=== PATIENT | female | born 1985 | race Two or more races ===

== ENCOUNTER → 2024-09-09 | Outpatient (CLI) | payer MEDICAID ==
[2024-09-09 09:50] LABS: Basophils # (auto) 0.1 10 ^3/uL (0-0.2); Basophils % (auto) 0.9 % (0.0-2.0); Eosinophils # (auto) 0.1 10 ^3/uL (0-0.8); Eosinophils % (auto) 1.5 % (0.0-7.0); Hematocrit 50.2 % (36.0-46.0); Hemoglobin 16.4 g/dL (12.2-16.2); Lymphocytes % (auto) 37.4 % (10.0-50.0); Mean Corpuscular Hemoglobin 27.6 pg (28.0-32.0); Mean Corpuscular Hgb Conc. 32.6 g/dL (32.0-36.0); Mean Corpuscular Volume 84.6 fL (80.0-100.0); Monocytes # (auto) 0.3 10 ^3/uL (0-1.3); Monocytes % (auto) 4.3 % (0.0-12.0); Neutrophils # (auto) 4.5 10 ^3/uL (1.6-8.6); Neutrophils % (auto) 55.9 % (37.0-80.0); Nucleated Red Blood Cells % 0.2 %; Platelet Count (auto) 176 10^3/uL (140-450); Red Blood Cells 5.93 10^6/uL (4.0-5.20); Red Cell Distribution Width 14.9 % (11.8-14.3); White Blood Cell 8.1 10^3/uL (4.4-10.8)
[2024-09-09 09:56] LABS: Urine Bacteria FEW /hpf (None Seen); Urine Blood 2+ /uL (Negative); Urine Budding Yeast OCCASIONAL /hpf (None Seen); Urine Clarity Turbid (Clear); Urine Color Light-Orange (Yellow); Urine Protein, UAD Negative (Negative); Urine Specific Gravity 1.032 (1.001-1.035); Urine Squamous Epithelial Cell MOD /hpf (<5); Urine Urobilinogen Normal (Negative); Urine WBC 18 /HPF (0-5); Urine pH 5.5 (5.0-9.0)
[2024-09-09 10:03] LABS: Creatinine, Urine 106.03 mg/dL (30.0-125.0)
[2024-09-09 10:07] LABS: Alanine Aminotransferase 21 U/L (7-40); Alkaline Phosphatase 111 U/L (46-116); Anion Gap 9 (5-15); BUN/Creatinine Ratio 11.4 (10.0-20.0); Carbon Dioxide 26 mmol/L (20-31); Chloride 104 mmol/L (98-107); Cholesterol 193 mg/dL (< 200); Glucose 93 mg/dL (74-106); HDL Cholesterol 49 mg/dL (40-59); Potassium 3.8 mmol/L (3.5-5.1); Sodium 139 mmol/L (136-145)
[2024-09-09 10:08] LABS: Bilirubin, Total 0.5 mg/dL (0.2-1.0)
[2024-09-09 10:11] LABS: Aspartate Aminotransferase 11 U/L (13-40); Blood Urea Nitrogen 8 mg/dL (9-23); LDL Cholesterol 120 mg/dL (< 100); Triglycerides 193 mg/dL (< 150)
== END | disposition home or self-care (01) ==
LOC: LAB 09:07
PROVIDERS: ATTEND Internal Medicine
DX: E11.9 Type 2 diabetes mellitus without complications (principal); E55.9 Vitamin D deficiency, unspecified; E78.5 Hyperlipidemia, unspecified
CPT/HCPCS: 36415; 80053; 80061; 81001; 82043; 82306; 82570; 82607; 83036; 84443; 85025

== ENCOUNTER 2024-11-30 10:13 | Outpatient (CLI) | payer MEDICAID ==
[2024-11-30 11:29] LABS: Alanine Aminotransferase 11 U/L (7-40); Alkaline Phosphatase 96 U/L (46-116); Anion Gap 8 (5-15); BUN/Creatinine Ratio 11.1 (10.0-20.0); Calcium 9.4 mg/dL (8.7-10.4); Carbon Dioxide 28 mmol/L (20-31); Chloride 105 mmol/L (98-107); Potassium 4.3 mmol/L (3.5-5.1); Sodium 141 mmol/L (136-145)
[2024-11-30 11:30] LABS: Total Protein 7.1 g/dL (5.7-8.2)
[2024-11-30 11:31] LABS: Albumin 4.8 g/dL (3.2-4.8); Bilirubin, Total 0.4 mg/dL (0.2-1.0); Blood Urea Nitrogen 8 mg/dL (9-23); Cholesterol 114 mg/dL (< 200); Creatine Kinase IFCC 63 U/L (34-145); Glucose 107 mg/dL (74-106); HDL Cholesterol 37 mg/dL (40-59); Triglycerides 183 mg/dL (< 150)
== END 2024-11-30 17:00 | disposition home or self-care (01) ==
LOC: LAB 10:13
PROVIDERS: ATTEND Internal Medicine
DX: E78.5 Hyperlipidemia, unspecified (principal); E11.9 Type 2 diabetes mellitus without complications
CPT/HCPCS: 36415; 80053; 80061; 82306; 82550; 83036

== ENCOUNTER 2025-02-28 09:34 | Outpatient (CLI) | payer MEDICAID ==
[2025-02-28 10:37] LABS: Triglycerides 114 mg/dL (< 150)
[2025-02-28 10:39] LABS: HDL Cholesterol 44 mg/dL (40-59)
[2025-02-28 10:40] LABS: Cholesterol 133 mg/dL (< 200)
== END 2025-02-28 17:00 | disposition home or self-care (01) ==
LOC: LAB 09:34
PROVIDERS: ATTEND Internal Medicine
DX: E11.9 Type 2 diabetes mellitus without complications (principal); E78.5 Hyperlipidemia, unspecified
CPT/HCPCS: 36415; 80061; 82306; 83036